=== PATIENT | female | born 1995 | race American Indian/Alaskan Native ===

== ENCOUNTER 2019-12-02 22:22 | Emergency (ER) | payer SELFPAY ==
[2019-12-02] MEDS ORDERED: SODIUM CHLORIDE 0.9% 1000 ML 1,000 ML IV ONE (22:50)
--- NOTE | 2019-12-02 23:10 | Emergency Department Report ---
HPI - General Time Seen by Provider: 12/02/19 22:35 - HPI HPI: This is a 24-year-old female presents to the emergency department via EMS after the patient had some type of a syncopal episode prior to presentation. The patient says that the last thing she remembers is shopping at [employer]. She does remember that she was supposed to go to to some type of libertarian or event but the n ext thing she remembers is being in the ambulance. She did put me on the phone with her "best friend" who arrived at this event/libertarian to find the patient essentially passed out with some abnormal respirations. She was able to the patient into her car and drove her to the closest fire house who then brought her in to the emergency department for evaluation. The patient at this time is awake, alert, oriented and has no physical complaints. She denies any medical history. Patient does admit that she was drinking tequila this evening. Patient denies any illicit drug use. However the patient did receive Narcan with EMS which did appear to wake her up. ED Past Medical Hx - Past Medical History Previous Medical History?: Yes Hx Psychiatric Treatment: Yes (depression) - Surgical History Past Surgical History?: No - Social History Smoking Status: Current Every Day Smoker Substance Use Type: Alcohol, Marijuana - Medications Home Medications: Home Medications Medication Instructions Recorded Confirmed Last Taken Type Nitrofurantoin Haskell/M-Cryst 100 mg PO Q12HR #14 capsule 12/03/19 Unknown Rx [Macrobid CAP] ED Review of Systems ROS: Stated complaint: OVERDOSE Other details as noted in HPI Comment: All other systems reviewed and negative Constitutional: denies: chills, fever Eyes: denies: eye pain, vision change ENT: denies: ear pain, throat pain Respiratory: denies: cough, shortness of breath Cardiovascular: syncope. denies: chest pain, palpitations Gastrointestinal: denies: abdominal pain, vomiting Genitourinary: denies: dysuria, discharge Musculoskeletal: denies: back pain, arthralgia Skin: denies: rash, lesions Neurological: denies: headache, weakness Physical Exam - Physical Exam Vital Signs: Vital Signs 12/02/19 22:35 Temperature 97.6 F Pulse Rate 95 H Respiratory 12 Rate Blood Pressure 103/70 Blood Pressure 103/70 [Left] O2 Sat by Pulse 99 Oximetry Physical Exam: GENERAL: The patient is well-developed well-nourished. HENT: Normocephalic. Atraumatic. Patient has moist mucous membranes. EYES: Extraocular motions are intact. No nystagmus. NECK: Supple. Trachea is midline. CHEST/LUNGS: Clear to auscultation. There is no respiratory distress noted. HEART/CARDIOVASCULAR: Regular. There is no tachycardia. There is no murmur. ABDOMEN: Abdomen is soft, nontender. Patient has normal bowel sounds. SKIN: Skin is warm and dry. NEURO: The patient is awake, alert, and oriented. The patient is cooperative. The patient has no focal neurologic deficits. Normal speech. Cranial nerves II through XII grossly intact. No pronator drift or dysmetria. No facial asy mmetry. MUSCULOSKELETAL: There is no tenderness or deformity. There is no limitation range of motion. ED Course Vital Signs 12/02/19 22:35 Temperature 97.6 F Pulse Rate 95 H Respiratory 12 Rate Blood Pressure 103/70 Blood Pressure 103/70 [Left] O2 Sat by Pulse 99 Oximetry ED Medical Decision Making - Lab Data Result diagrams: 12/02/19 23:03 12/02/19 23:03 - EKG Data -: EKG Interpreted by Id EKG shows normal: sinus rhythm, axis, intervals, QRS complexes Rate: normal - EKG Data When compared to previous EKG there are: previous EKG unavailable Interpretation: normal EKG - Medical Decision Making This patient presents to the emergency department after she was found unrespo nsive at some type of libertarian/event by her friend. She was brought to a local fire station and then transported to the emergency department by EMS. In route the patient was given some Narcan and she became awake and alert. Patient does admit to drinking some alcohol and her blood alcohol level came back at 0.16, 2 times the legal limit. The patient does deny using any illicit drugs or abusing any prescription medications. Urine drug screen came back positive for opiates and marijuana. The finding of opiates is consistent with the positive effect of Narcan, and mixed with the alcohol could certainly cause the patient to have altered mental status or the unresponsive episode. However, since presentation to the emergency department and my initial examination, the patient has been awake, alert, oriented. She does not have any focal, motor or sensory deficits and her cranial nerves are intact. An EKG was done that does not show any ST elevation OR or any dysrhythmia. The patient's labs were otherwise mostly unremarkable except for some mild hypokalemia and a mild urinary tract inf ection. The patient was given some potassium chloride. She was given some IV fluid resuscitation. She was reevaluated multiple times over multiple hours and has remained awake, alert and oriented. She has normal decision-making capacity. Because of the alcohol consumption, the patient would not be allowed to leave the emergency department on her own accord. However, the patient's friends have driven to the emergency department to take responsibility for her and get her home safely. We discussed avoiding any further alcohol abuse. She has been instructed to follow-up with her primary care physician and to return to the emergency department with any worsening of her symptoms or with any acute distress. Critical Care Time: No Critical care attestation.: If time is entered above; I have spent that time in minutes in the direct care o f this critically ill patient, excluding procedure time. ED Disposition Clinical Impression: Alcohol intoxication Qualifiers: Complication of substance-induced condition: uncomplicated Qualified Code(s): F10.920 - Alcohol use, unspecified with intoxication, uncomplicated Accidental opiate poisoning Qualifiers: Encounter type: initial encounter Qualified Code(s): T40.601A - Poisoning by unspecified narcotics, accidental (unintentional), initial encounter UTI (urinary tract infection) Qualifiers: Urinary tract infection type: acute cystitis Hematuria presence: without hematuria Qualified Code(s): N30.00 - Acute cystitis without hematuria Disposition: DC- TO HOME OR SELFCARE Is pt being admited?: No Condition: Stable Instructions: Alcohol Intoxication (ED), Abuse of Alcohol (ED) Additional Instructions: Opiates were found to be positive in your urine drug screen. If you did not intentionally use any illicit or prescription drugs containing opiates, then it is possible that someone may have given it to you without your knowledge. You were given a medication called Narcan by EMS that is used to reverse the effects of opiates. Your alcohol level was twice the legal limit. Please avoid any further alcohol abuse. Please follow-up with a primary care physician in the next few days. Return to the emergency department with any worsening of your symptoms, new or concerning symptoms not addressed during this current emergency department visit, or with any acute distress. Prescriptions: Nitrofurantoin Haskell/M-Cryst [Macrobid CAP] 100 mg PO Q12HR #14 capsule Referrals: PRIMARY CARE, [Primary Care Provider] - 2-3 Days Time of Disposition: 01:15
[2019-12-03 00:07] LABS: Bilirubin,Urine NEG (Negative); Blood,Urine LG (Negative); Color,Urine Yellow (Yellow); Mucus,Urine FEW /HPF; Urobilinogen,Urine < 2.0 mg/dL (<2.0)
[2019-12-03 00:10] LABS: Basophils # (Auto) 0.1 K/mm3 (0.0-0.1); Basophils % (Auto) 0.4 % (0.0-1.8); Eosinophils % (Auto) 0.1 % (0.0-4.3); Hematocrit 36.3 % (30.3-42.9); Hemoglobin 11.6 gm/dl (10.1-14.3); Lymphocytes # (Auto) 2.2 K/mm3 (1.2-5.4); Mean Corpuscular HGB Conc 32 % (30-34); Mean Corpuscular Volume 86 fl (79-97); Monocytes % (Auto) 6.5 % (0.0-7.3); Platelet Count 270 K/mm3 (140-440); Red Blood Count 4.23 M/mm3 (3.65-5.03); Red Cell Distribution Width 14.6 % (13.2-15.2)
[2019-12-03 00:14] LABS: Amphetamine Screen,Urine PRESUMPTIVE NEGATIVE; Benzodiazepines Screen,Urine PRESUMPTIVE NEGATIVE; Cannabinoid Screen,Urine PRESUMPTIVE POSITIVE; Cocaine Screen,Urine PRESUMPTIVE NEGATIVE; Methadone Screen,Urine PRESUMPTIVE NEGATIVE; Opiate Screen,Urine PRESUMPTIVE POSITIVE
[2019-12-03 00:20] LABS: Alanine Aminotransferase 17 units/L (7-56); Albumin 4.5 g/dL (3.9-5); BUN/Creatinine Ratio 10; Blood Urea Nitrogen 8 mg/dL (7-17); Calcium 8.8 mg/dL (8.4-10.2); Hemolysis Index 4
[2019-12-03] MEDS ORDERED: NITROFURANTOIN MONOHYD/M-CRYST 100 MG CAP PO ONE (00:30)
[2019-12-03] MEDS ORDERED: POTASSIUM CHLORIDE ER 10 MEQ TAB PO ONE (00:31)
[2019-12-03 01:35] VITALS: BP 121/85
== END 2019-12-03 01:30 | disposition home or self-care (01) ==
LOC: ED 22:22
DX: T40.601A Poisoning by unspecified narcotics, accidental (unintentional), initial encounter (principal); N39.0 Urinary tract infection, site not specified; F10.920 Alcohol use, unspecified with intoxication, uncomplicated; X58.XXXA Exposure to other specified factors, initial encounter; Y93.89 Activity, other specified; Y92.89 Other specified places as the place of occurrence of the external cause; Y99.8 Other external cause status
CPT/HCPCS: 36415; 80053; 80307; 81001; 84439; 84443; 84703; 85025; 87086; 93005; 96360; 99284; J7030; 80320; G0480